=== PATIENT | male | born 1975 | race Caucasian/White ===

== ENCOUNTER 2020-03-21 11:58 | Emergency (ER) | payer MEDICARE, MEDICAID ==
--- NOTE | 2020-03-21 12:15 | EDM.PDOC ---
ED HPI GENERAL MEDICAL PROBLEM - General Chief Complaint: Back Pain or Injury Stated Complaint: BACK PAIN Time Seen by Provider: 03/21/20 12:08 Source of Information: Reports: Patient History Limitations: Reports: No Limitations - History of Present Illness INITIAL COMMENTS - FREE TEXT/NARRATIVE: HISTORY AND PHYSICAL: History of present illness: Patient is a 44-year-old male who presents to the emergency room today with complaints of lumbar back pain. He reports he has a longstanding history of chronic back pain which has required multiple surgeries. He does see a back and sight effects specialist in [facility]. He states he last had a TENS stimulator unit implanted approximately 2-1/2 years ago. Since that time he has had intermittent acute on chronic back pain which is typically relieved with [id number] pain medication. A few days ago he was mowing his lawn and doing various activities in his yard and feels he pulled something. Initially he thought his TENS unit was "acting up or broke". He does have a device that will check the TENS unit and states that the unit is functioning appropriately. Today's pain is more intense than normal. He denies any numbness, tingling, saddle paresthesia or weakness. He denies any urinary or fecal incontinence. Patient denies any fever, chills, headache, change in vision, syncope or near syncope. Denies any chest pain, back pain, shortness of breath or cough. Denies any abdominal pain, nausea, vomiting, diarrhea, constipation or dysuria. Denies any testicular pain, redness or swelling. Has not noted any blood in urine or stool. Patient has been eating and drinking appropriately. Review of systems: As per history of present illness and below otherwise all systems reviewed and negative. Past medical history: As per history of present illness and as reviewed below otherwise noncontributory. Surgical history: As per history of present illness and as reviewed below otherwise noncontributory. Social history: See social history for further information Family history: As per history of present illness and as reviewed below otherwise noncontributory. Physical exam: General: Well-developed and well-nourished 44-year-old male. Alert and oriented. Nontoxic-appearing and in no acute distress. HEENT: Atraumatic, normocephalic, pupils equal and reactive bilaterally, negative for conjunctival pallor or scleral icterus, mucous membranes moist, trachea midline. No drooling or trismus noted. No meningeal signs. No hot potato voice noted. Lungs: Clear to auscultation, breath sounds equal bilaterally, chest nontender. Heart: S1S2, regular rate and rhythm without overt murmur Abdomen: Soft, nondistended, nontender. Negative for masses or costovertebral tenderness. Pelvis: Stable nontender. C-spine/Back: No pinpoint vertebral tenderness upon palpation. No crepitus, step-offs or obvious deformities. Patient is ambulatory into the emergency room without difficulty or deficit. Scars are noted along the midline spine. Does have tenderness with palpation of the paraspinous musculature of the lumbar spine bilaterally. He is able to rock back on heels and walk on toes. Denies any urinary or fecal incontinence. Denies any numbness, tingling or saddle paresthesia. No concerns of serious infection, fracture or cord compression, or cauda equina syndrome. Deep tendon reflexes brisk bilaterally. Skin: Intact, warm, dry. No lesions or rashes noted. Extremities: Atraumatic, moves all extremities per self without difficulty or deficits, negative for cords or calf pain. Neurovascular unremarkable. Neuro: Awake, alert, oriented. Cranial nerves II through XII unremarkable. Cerebellum unremarkable. Motor and sensory unremarkable throughout. Exam nonfocal. Notes: Due to patient's longstanding history of chronic back pain with multiple back surgeries and a stem ambulator implant I will do an MRI if available. MRI shows postsurgical changes at L3-4 through L5-S1. There are degenerative changes noted. Most prominent findings are a disc bulge at L2-3 to the far right lateral side touching the exiting right L2 nerve root within and outside the neural foramina. We discussed the MRI findings and I encouraged him to follow-up with his back and sight effects specialist in [place]. We discussed signs and symptoms that would prompt him to return to the emergency room. I also did reevaluate the patient and there are no new findings or concerns, he is suitable for discharge. Follow-up, medication and supportive care measures were reviewed and discussed. Voices understanding and is agreeable to plan of care. Denies any further questions or concerns at this time. Diagnostics: MRI LS Therapeutics: Toradol and Norflex IM Prescription: Tramadol and Norflex Impression: Lumbar back pain Plan: 1. The medication you received today does cause drowsiness, so do not drive for the remaining day 2. When resting please lay on a flat firm surface. Limit your immobility to prevent muscle stiffness. Get up to ambulate/move around/gentle stretching multiple times throughout the day. May alternate heat and ice to the painful areas 3. Tylenol as needed for back pain. Otherwise take the prescribed Norflex and Tramadol as directed. Both of these medications may cause drowsiness, DO NOT TAKE TOGETHER AT THE SAME TIME. Also, do not take it will driving or needing to be functioning outside of the house. 4. Please follow-up with your Back and Creative Services Coordinator as we discussed. Return to the ED as needed and as discussed. Definitive disposition and diagnosis as appropriate pending reevaluation and review of above. back pain Pain Score (Numeric/FACES): 8 - Related Data Allergies Allergy/AdvReac Type Severity Reaction Status Date / Time hydrocodone Allergy Itching Verified 03/21/20 12:18 oxycodone Allergy Itching Verified 03/21/20 12:18 Home Meds: Home Meds Dicyclomine [Bentyl] 20 mg PO BID 03/21/20 [History] Omeprazole 80 mg PO DAILY 03/21/20 [History] Orphenadrine [Norflex] 100 mg PO BID PRN #30 tab 03/21/20 [Rx] amLODIPine [Norvasc] 20 mg PO DAILY 03/21/20 [History] traMADol [Ultram] 50 mg PO Q4H PRN #30 tab 03/21/20 [Rx] ED ROS GENERAL - Review of Systems Review Of Systems: Comprehensive ROS is negative, except as noted in HPI. ED EXAM,LOWER BACK PAIN/INJURY - Physical Exam Exam: See Below (See dictation) Course - Vital Signs Last Recorded V/S: Last Vital Signs Temp 96.1 F L 03/21/20 12:15 Pulse 84 03/21/20 12:15 Resp 16 03/21/20 12:15 BP 137/99 H 03/21/20 12:15 Pulse Ox 100 03/21/20 12:15 - Orders/Labs/Meds Meds: Medications Discontinued Medications Generic Name Dose Route Start Last Admin Trade Name Freq PRN Reason Stop Dose Admin Ketorolac Tromethamine 60 mg 03/21/20 12:18 03/21/20 13:14 Toradol IM 03/21/20 12:19 60 mg ONETIME ONE Administration Orphenadrine Citrate 60 mg 03/21/20 12:18 03/21/20 13:15 Norflex IM 03/21/20 12:19 60 mg ONETIME ONE Administration Departure - Departure Time of Disposition: 13:46 Disposition: Home, Self-Care 01 Clinical Impression: Lumbar back pain - Discharge Information Prescriptions: Orphenadrine [Norflex] 100 mg PO BID PRN #30 tab PRN Reason: muscle pain traMADol [Ultram] 50 mg PO Q4H PRN #30 tab PRN Reason: Pain Instructions: Acute Back Pain, Adult Referrals: Meghan Henson NP [Primary Care Provider] - Forms: ED Department Discharge Additional Instructions: The following information is given to patients seen in the emergency department who are being discharged to home. This information is to outline your options for follow-up care. We provide all patients seen in our emergency department with a follow-up referral. The need for follow-up, as well as the timing and circumstances, are variable depending upon the specifics of your emergency department visit. If you don't have a primary care physician on staff, we will provide you with a referral. We always advise you to contact your personal physician following an emergency department visit to inform them of the circumstance of the visit and for follow-up with them and/or the need for any referrals to a consulting specialist. The emergency department will also refer you to a specialist when appropriate. This referral assures that you have the opportunity for follow-up care with a specialist. All of these measure are taken in an effort to provide you with optimal care, which includes your follow-up. Under all circumstances we always encourage you to contact your private physician who remains a resource for coordinating your care. When calling for follow-up care, please make the office aware that this follow-up is from your recent emergency room visit. If for any reason you are refused follow-up, please contact the [facility] at and asked to speak to the emergency department charge nurse. [facility] [address] [place] [id number] [facility] [address] [place] [address] Thank you for choosing the [facility] emergency department in [place] for your medical needs today. It was a pleasure caring for you. You were seen in the emergency department for back pain. 1. The medication you received today does cause drowsiness, so do not drive for the remaining day 2. When resting please lay on a flat firm surface. Limit your immobility to prevent muscle stiffness. Get up to ambulate/move around/gentle stretching multiple times throughout the day. May alternate heat and ice to the painful areas 3. Tylenol and/or Ibuprofen as needed for back pain. Otherwise take the prescribed Norflex and Tramadol as directed. Both of these medications may cause drowsiness, DO NOT TAKE TOGETHER AT THE SAME TIME. Also, do not take it will driving or needing to be functioning outside of the house. 4. Please follow-up with your Back and Creative Services Coordinator as we discussed. Return to the ED as needed and as discussed. Sepsis Event Note (ED) - Focused Exam Vital Signs: Vital Signs Temp Pulse Resp BP Pulse Ox 03/21/20 12:15 96.1 F L 84 16 137/99 H 100
[2020-03-21] MEDS ORDERED: Orphenadrine 60 MG/2 ML Inj IM ONE (12:18)
[2020-03-21] MEDS ORDERED: Ketorolac 60 MG/2 ML SDV IM ONE (12:18)
--- NOTE | 2020-03-21 13:25 | MR ---
MRI lumbar spine Technique: T1 and T2 weighted axial images were obtained from the mid T11-12 disc through the L5 S1 discs. T1, T2 and fat suppressed inversion recovery sagittal images were obtained. Comparison: No prior lumbar spine imaging. Findings: T11-12: Mild disc space narrowing is noted with Schmorl node deformities. Posterior disc is preserved. No central canal stenosis or neural foraminal stenosis is seen. T11-12: Schmorl node deformities are seen. Posterior disc is preserved. No central canal stenosis or neural foraminal stenosis is seen. T12-L1: Posterior disc is preserved. No central canal stenosis or neural foraminal stenosis is seen. L1-2: Posterior disc maintains a minimally concave margin. No central canal stenosis or neural foraminal stenosis is seen. L2-3: Mild posterior disc space narrowing is seen. Minimal circumferential disc bulge is present. Posterior disc maintains a planar to minimally concave margin. Mild degenerative apophyseal change is noted. No central canal stenosis is seen. Disc bulging is noted into both inferior neural foramina. Disc bulge touches the exiting L2 nerve root on the right side. Left L2 nerve root exits without compromise. L3-4: Transpedicle screws are seen above and below this level. No central canal stenosis is seen. Posterior laminectomy is noted. Neural foramina appear to be patent where the nerve roots exit. Intervertebral disc fixation is seen. L4-5: Transpedicle screws are seen above and below this level. Intervertebral disc fixation is seen. Posterior laminectomy is noted. No central canal stenosis is seen. Neural foramina appear to be patent where the nerve roots exits. L5-S1: Transpedicle screws are seen above and below this level. No definite central canal stenosis or neural foraminal. Areas of increased signal within the L3-L5 vertebral bodies is seen felt to be due to degenerative fat replacement. Conus medullaris and cauda equina shows no abnormal signal or mass. Impression: 1. Postsurgical change at L3-4 through L5-S1. 2. Other degenerative change as noted above. Most prominent findings are a disc bulge at L2-3 to the far right lateral side touching the exiting right L2 nerve root within and outside the neural foramina. Diagnostic code #3 This report was dictated in MDT
== END 2020-03-21 13:55 | disposition home or self-care (01) ==
LOC: MW.ED 11:58
DX: M54.5 Low back pain (principal); Z88.5 Allergy status to narcotic agent; Z79.899 Other long term (current) drug therapy
CPT/HCPCS: 72148; 96372; 99283; J1885; J2360

== ENCOUNTER 2020-09-16 13:30 | Emergency (ER) | payer MEDICARE, MEDICAID ==
[2020-09-16] MEDS ORDERED: HYDROmorphone 1 MG/ML Syringe IM ONE (14:00)
[2020-09-16] MEDS ORDERED: Orphenadrine 60 MG/2 ML Inj IM ONE (14:01)
--- NOTE | 2020-09-16 14:08 | EDM.PDOC ---
ED HPI GENERAL MEDICAL PROBLEM - General Chief Complaint: Back Pain or Injury Stated Complaint: BACK PAIN Time Seen by Provider: 09/16/20 13:37 Source of Information: Reports: Patient History Limitations: Reports: No Limitations - History of Present Illness INITIAL COMMENTS - FREE TEXT/NARRATIVE: Presents reporting low back pain mostly the muscles and in the flank/SI joint area "are just twisting". And has a longstanding history of lumbar arthropathy, disc disease and radiculopathy. He is under the care of the Dr. Reese neurosurgery in [place] and has had 11 lumbar surgeries. He also has chronic lower extremity numbness for which he takes gabapentin 600 mg daily. He has a SNS. He has had numerous MRIs. He states that every 6 to 12 months he has a episode like today without aggravating factors. He did not injure himself and has done none no lifting or unusual activity. He usually takes Voltaren tramadol on a regular basis and the last 5 days is has taken "more than I should". He states that for these episodes he usually comes to the ER "get 2 shots and I am good to go". He denies saddle anesthesia, focal weakness, loss of bowel or bladder function, fever, cancer history, dysuria. lumbar pain Pain Score (Numeric/FACES): 9 - Related Data Allergies Allergy/AdvReac Type Severity Reaction Status Date / Time hydrocodone Allergy Itching Verified 09/16/20 13:41 oxycodone Allergy Itching Verified 09/16/20 13:41 Home Meds: Home Meds Omeprazole 80 mg PO DAILY 03/21/20 [History] amLODIPine [Norvasc] 20 mg PO DAILY 03/21/20 [History] traMADol [Ultram] 50 mg PO Q4H PRN #30 tab 03/21/20 [Rx] Cyclobenzaprine [Flexeril] 10 mg PO TID PRN #30 tab 09/16/20 [Rx] Diclofenac Sodium [Voltaren] 50 mg PO DAILY 09/16/20 [History] Gabapentin [Neurontin] 300 mg PO BID 09/16/20 [History] Past Medical History Cardiovascular History: Reports: Hypertension Musculoskeletal History: Reports: Back Pain, Chronic - Infectious Disease History Infectious Disease History: Reports: Chicken Pox - Past Surgical History GI Surgical History: Reports: Cholecystectomy, Hernia Repair/Other Musculoskeletal Surgical History: Reports: Other (See Below) Other Musculoskeletal Surgeries/Procedures:: hand ligaments repaired. Multiple back surgeries from an accident. back stimulator Social & Family History - Family History Family Medical History: No Pertinent Family History - Tobacco Use Tobacco Use Status *Q: Current Every Day Tobacco User Years of Tobacco use: 30 Packs/Tins Daily: 1 - Caffeine Use Caffeine Use: Reports: Soda - Recreational Drug Use Recreational Drug Use: No ED ROS GENERAL - Review of Systems Review Of Systems: Comprehensive ROS is negative, except as noted in HPI. ED EXAM,LOWER BACK PAIN/INJURY - Physical Exam Exam: See Below Exam Limited By: No Limitations General Appearance: Alert, No Apparent Distress Ears: Normal External Exam Nose: Normal Inspection Throat/Mouth: Normal Inspection Head: Atraumatic, Normocephalic Neck: Normal Inspection Respiratory/Chest: No Respiratory Distress, Lungs Clear, Normal Breath Sounds Cardiovascular: Regular Rate, Rhythm, No Murmur Back Exam: Normal Inspection. No: Paraspinal Tenderness, Vertebral Tenderness Extremities: Normal Inspection, Normal Range of Motion Neurological: Alert, Normal Mood/Affect, Normal Dorsiflexion, Normal Plantar Flexion, No Motor/Sensory Deficits, Oriented x 3. No: Straight Leg Raise (L), Straight Leg Raise (R) DTR - Lower Extremities: 1+: Knee (R) (usual finding per the patient), 2+: Knee (L) Psychiatric: Normal Affect, Normal Mood Skin Exam: Warm, Dry, Intact, Normal Color, No Rash Lymphatic: No Adenopathy Course - Vital Signs Last Recorded V/S: Last Vital Signs Temp 36.1 C 09/16/20 13:43 Pulse 95 09/16/20 13:43 Resp 19 09/16/20 13:43 BP 182/101 H 09/16/20 13:43 Pulse Ox 97 09/16/20 13:43 - Orders/Labs/Meds Meds: Medications Discontinued Medications Generic Name Dose Route Start Last Admin Trade Name Sari PRN Reason Stop Dose Admin Hydromorphone HCl 1 mg 09/16/20 14:00 Dilaudid IM 09/16/20 14:01 ONETIME ONE Orphenadrine Citrate 60 mg 09/16/20 14:01 Norflex IM 09/16/20 14:02 ONETIME ONE Departure - Departure Time of Disposition: 14:10 Disposition: Home, Self-Care 01 Condition: Good Clinical Impression: Lumbar radiculopathy - Discharge Information Referrals: PCP,Not In Area [Primary Care Provider] - Additional Instructions: The following information is given to patients seen in the emergency department who are being discharged to home. This information is to outline your options for follow-up care. We provide all patients seen in our emergency department with a follow-up referral. The need for follow-up, as well as the timing and circumstances, are variable depending upon the specifics of your emergency department visit. If you don't have a primary care physician on staff, we will provide you with a referral. We always advise you to contact your personal physician following an emergency department visit to inform them of the circumstance of the visit and for follow-up with them and/or the need for any referrals to a consulting spec ialist. The emergency department will also refer you to a specialist when appropriate. This referral assures that you have the opportunity for follow-up care with a specialist. All of these measure are taken in an effort to provide you with optimal care, which includes your follow-up. Under all circumstances we always encourage you to contact your private physician who remains a resource for coordinating your care. When calling for follow-up care, please make the office aware that this follow-up is from your recent emergency room visit. If for any reason you are refused follow-up, please contact the [facility] Emergency Department at and asked to speak to the emergency department charge nurse. 1. Follow up with your neurosurgeon in [place]. 2. No Diving or operating machinery this afternoon as you have had a opioid injection in the emergency room 3. You have been prescribed a muscle relaxant which you may take every 8 hours. No driving or operating machinery Sepsis Event Note (ED) - Evaluation Sepsis Screening Result: No Definite Risk - Focused Exam Vital Signs: Vital Signs Temp Pulse Resp BP Pulse Ox 09/16/20 13:43 36.1 C 95 19 182/101 H 97
== END 2020-09-16 14:50 | disposition home or self-care (01) ==
LOC: MW.ED 13:30
DX: M54.16 Radiculopathy, lumbar region (principal); I10 Essential (primary) hypertension; Z72.0 Tobacco use; Z88.5 Allergy status to narcotic agent; Z79.899 Other long term (current) drug therapy
CPT/HCPCS: 96372; 99283; J1170; J2360

== ENCOUNTER 2021-09-08 13:32 | Emergency (ER) | payer MEDICARE, MEDICAID ==
[2021-09-08] MEDS ORDERED: diphenhydrAMINE 25 MG Cap PO ONE (14:54)
[2021-09-08] MEDS ORDERED: HYDROmorphone 1 MG/ML Syringe IM ONE (14:54)
== END 2021-09-08 16:07 | disposition home or self-care (01) ==
LOC: MW.ED 13:32
DX: M54.50 Low back pain, unspecified (principal); Z88.8 Allergy status to other drugs, medicaments and biological substances; Z79.899 Other long term (current) drug therapy; Z90.49 Acquired absence of other specified parts of digestive tract
CPT/HCPCS: 72131; 96372; 99283; A9270; J1170

== ENCOUNTER 2021-09-27 00:52 | Emergency (ER) | payer MEDICARE, MEDICAID ==
[2021-09-27] MEDS ORDERED: Cyclobenzaprine 10 MG Tab PO ONE (01:11)
[2021-09-27] MEDS ORDERED: HYDROmorphone 1 MG/ML Syringe IM ONE ×2 (01:11→03:04)
== END 2021-09-27 03:43 | disposition home or self-care (01) ==
LOC: MW.ED 00:52
DX: R93.5 Abnormal findings on diagnostic imaging of other abdominal regions, including retroperitoneum (principal); I10 Essential (primary) hypertension; Z88.5 Allergy status to narcotic agent; Z79.899 Other long term (current) drug therapy
CPT/HCPCS: 70450; 72125; 72192; 73030; 96372; 99284; A9270; J1170

== ENCOUNTER 2021-12-28 21:02 | Emergency (ER) | payer MEDICARE, MEDICAID ==
[2021-12-28] MEDS ORDERED: Ketorolac 30 MG/ML SDV IVPUSH ONE (21:19)
[2021-12-28] MEDS ORDERED: Morphine 4 MG/ML VIAL IVPUSH ONE (21:19)
[2021-12-28] MEDS ORDERED: Clindamycin Phosphate in D5W 600 MG in Premix Bag 1 BAG IV ONE ×2 (21:19)
[2021-12-28] MEDS ORDERED: Ondansetron 4 MG/2 ML SDV IVPUSH ONE (21:19)
[2021-12-28] MEDS ORDERED: Sodium Chloride 0.9% 1,000 ML IV ONE (21:19)
[2021-12-28 22:17] LABS: BLOOD UREA NITROGEN,BUN 2 mg/dL (7.0-18.0); CARBON DIOXIDE,CO2 21.8 mmol/L (21.0-32.0); CHLORIDE,CL 103 mmol/L (98-107); GLUCOSE RANDOM 88 mg/dL (74-106); POTASSIUM,K 3.5 mmol/L (3.5-5.1); SODIUM,NA 142 mmol/L (136-148)
[2021-12-28] MEDS ORDERED: Iopamidol 755 MG/ML 500 ML Multipack Bottle IVPUSH STA (22:54)
== END 2021-12-29 00:12 | disposition home or self-care (01) ==
LOC: MW.ED 21:02
DX: M54.50 Low back pain, unspecified (principal); G89.29 Other chronic pain; L73.2 Hidradenitis suppurativa; I10 Essential (primary) hypertension; Z79.899 Other long term (current) drug therapy; Z90.49 Acquired absence of other specified parts of digestive tract; Z88.5 Allergy status to narcotic agent
CPT/HCPCS: 36415; 74177; 80053; 83605; 83735; 85025; 87040; 96365; 96375; 99284; J1885; J2270; J2405; J3490; J7030; Q9967